=== PATIENT | male | born 1960 | race Two or more races ===

== ENCOUNTER 2020-10-10 19:04 | Inpatient (IN) | payer MEDICARE, OTHER ==
[~2020-10-10] VITALS: Ht 170.2 cm; Wt 83.9 kg
--- NOTE | 2020-10-10 19:31 | NUR ---
PT BIBRA 102 AND LORRAINE C/O CHEST PAIN X2 HR, UNABLE TO GIVE NITRO NOR ASPIRIN DUE TO PT "SPITTING IT OUT" UPON SPEAKING TO THE RA, STATED "HE HAS L SIDED CP" DUE TO PALPATION ON LEFT SIDE OF CHEST. LORRAINE STATED PT'S NOTED PT DID NOT SLEEP FOR THE PAST 3 DAYS, HAS BEEN AGGRESSIVE TOWARDS THE ACCUSING OF CHEATING. PT PLACED IN BED 10 ON CAR EXAMINER AND PULSE OX. LINE ESTABLISHED RH 20G, BLOOD COLLECTED, SENT TO LAB. PLACED ON HOLD FOR DANGER TO SELF AND OTHERS.
--- NOTE | 2020-10-10 19:54 | NUR ---
LINE ESTABLISHED LH 20G, BLOOD WORK SENT TO LAB.
[2020-10-10 20:04] LABS: BASOPHILS # (AUTO) 0.1 /CMM (0.0-0.2); BASOPHILS % (AUTO) 1.1 % (0.0-2.0); EOSINOPHILS % (AUTO) 0.1 % (0.0-6.0); HEMATOCRIT 34 % (39-51); HEMOGLOBIN 10.5 g/dL (13.5-17.5); LYMPHOCYTES % (AUTO) 13.7 % (20.0-44.0); MEAN CORPUSCULAR HGB CONC 31 g/dl (31.0-36.0); MEAN CORPUSCULAR VOLUME 69 fL (80-96); MONOCYTES # (AUTO) 0.6 /CMM (0.1-1.30); MONOCYTES % (AUTO) 8.4 % (2.0-12.0); NEUTROPHILS # (AUTO) 5.5 /CMM (1.8-8.9); NEUTROPHILS % (AUTO) 76.7 % (43.0-81.0); PLATELET COUNT (AUTO) 284 /CMM (150-450); RED BLOOD CELL COUNT(AUTO) 4.91 MIL/uL (4.5-6.0); WHITE BLOOD COUNT (AUTO) 7.2 K/uL (4.3-11.0)
[2020-10-10] MEDS ORDERED: HALOPERIDOL LACTATE INJ 5 MG/ML VIAL ONE (20:11)
[2020-10-10 20:21] LABS: ALANINE AMINOTRANSFERASE 8 U/L (12-78); ALCOHOL, BLOOD < 3 mg/dL (0-0); ALKALINE PHOSPHATASE 68 U/L (46-116); ASPARTATE AMINOTRANSFERASE 16 U/L (15-37); BILIRUBIN,DIRECT 0.2 mg/dL (0.0-0.2); BILIRUBIN,TOTAL 0.6 mg/dL (0.2-1.0); CALCIUM, SERUM 8.6 mg/dL (8.5-10.1); CARBON DIOXIDE 26 mmol/L (21-32); CHLORIDE 104 mmol/L (98-107); CREATININE 1.1 mg/dL (0.6-1.3); GLUCOSE 117 mg/dL (74-106); LIPASE 36 U/L (73-393); POTASSIUM 3.5 mmol/L (3.5-5.1); SODIUM SERUM 136 mmol/L (136-145); TOTAL PROTEIN, SERUM 7.5 g/dL (6.4-8.2); UREA NITROGEN, BLOOD 14 mg/dL (7-18)
[2020-10-10 20:28] LABS: ACETAMINOPHEN 0 ug/ml (10-30)
[2020-10-10] MEDS ORDERED: IV NS 0.9% 500 ML BAG IV ONE (20:30)
[2020-10-10] MEDS ORDERED: HALOPERIDOL LACTATE INJ 5 MG/ML VIAL IV ONE (20:30)
[2020-10-10] MEDS ORDERED: LIDOCAINE 2% JEL UROJET 10 ML MM ONE ×2 (20:57→21:30)
--- NOTE | 2020-10-10 21:11 | NUR ---
URINE COLLECTED, SENT TO LAB.
[2020-10-10 22:12] LABS: BILIRUBIN,URINE NEGATIVE (NEGATIVE); COLOR,URINE YELLOW (YELLOW); LEUKOCYTE ESTERASE ,URINE NEGATIVE (NEGATIVE); NITRITE, URINE NEGATIVE (NEGATIVE); PROTEIN,URINE 30 mg/dl (NEGATIVE); UGLUCOSE NEGATIVE (NEGATIVE); UROBILINOGEN,URINE 0.2 EU/dL (0.2)
[2020-10-10 22:33] LABS: RBC,URINE 0-2 /HPF (0-2)
[2020-10-10 22:34] LABS: BACTERIA,URINE None seen /HPF (None Seen); MUCUS,URINE Few /LPF (None Seen); SQUAMOUS EPITHELIAL CELL,UR Few /HPF (None Seen)
--- NOTE | 2020-10-11 01:58 | NUR ---
AZAM AIRCRAFT ENGINE MECHANIC SUPERVISOR PAGED FOR PSYCH EVAL.
--- NOTE | 2020-10-11 03:11 | NUR ---
AZAM BACKROOM ASSOCIATE PAGED FOR PSYCH EVAL.
--- NOTE | 2020-10-11 04:47 | NUR ---
PT REMAINS IN BED, RESTING COMFORTABLY. VSS.
--- NOTE | 2020-10-11 05:37 | NUR ---
AZAM FIELD REPRESENTATIVES DIRECTOR PAGED FOR PSYCH EVAL.
--- NOTE | 2020-10-11 05:48 | NUR ---
MUSEUM EDUCATOR ALEC NASCIMENTO ETA 1 HOUR FOR EVALUATION
--- NOTE | 2020-10-11 07:58 | NUR ---
Assumed care report given by Randy [id number] LORRAINE fraser @ bedside awaiting for re eval .
--- NOTE | 2020-10-11 11:50 | NUR ---
Patient calm @ this time remain 5150 no agitation @ this time check meds bottle 7 bottles of meds and returned and place in his belonging bag witness by Heather ADDISON .
--- NOTE | 2020-10-11 12:19 | NUR ---
pt assigned to [facility] Addendum: 10/11/20 at 1220 by RBATACLAN accepting is Dr. Eavns
--- NOTE | 2020-10-11 12:36 | NUR ---
Called report patient to [facility] akvya Coleman Rn .
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
[2020-10-11 13:15] VITALS: BP 162/94
[2020-10-11] MEDS ORDERED: TEMAZEPAM 7.5 MG CAPSULE PO PRN (14:00)
[2020-10-11] MEDS ORDERED: BLOOD SUGAR DIAGNOSTIC 1 EACH STRIP IN ONE (14:00)
[2020-10-11] MEDS ORDERED: MAGNESIUM HYDROXIDE 30 ML UDC PO PRN (14:00)
[2020-10-11] MEDS ORDERED: METO100T14 PO (14:39)
[2020-10-11] MEDS ORDERED: LORA-259 PO (14:39)
[2020-10-11] MEDS ORDERED: GABA600T12 PO (14:39)
[2020-10-11] MEDS ORDERED: CARB-94 PO (14:39)
[2020-10-11] MEDS ORDERED: LORA10TA7 PO (14:50)
[2020-10-11] MEDS ORDERED: QUET25TA PO (14:50)
[2020-10-11] MEDS ORDERED: ASPI-1169 PO ×2 (14:50)
[2020-10-11] MEDS ORDERED: MECL-159 PO (14:50)
[2020-10-11] MEDS ORDERED: ENTA200T PO (15:02)
[2020-10-11] MEDS: LORAZEPAM 0.5 MG TABLET PO PRN (15:44)
[2020-10-11] MEDS: ACETAMINOPHEN 325 MG TABLET PO PRN (15:44)
--- NOTE | 2020-10-11 15:46 | NUR ---
RN NOTE- PT W GENERALIZED DISCOMFORT AND ANXIETY. TYLENOL 650 MG AND ATIVAN 0.5 MG GIVEN
[2020-10-11] MEDS: ENTACAPONE 200 MG TABLET PO SCH ×2 (18:47→20:33)
[2020-10-11] MEDS: CARBIDOPA/LEVODOPA 25/250 MG 1 UDTAB PO SCH ×2 (18:54→20:33)
[2020-10-11 20:18] VITALS: BP 128/62
[2020-10-11] MEDS: METOPROLOL TARTRATE 50 MG TABLET PO SCH (20:35)
[2020-10-12] MEDS: ENTACAPONE 200 MG TABLET PO SCH ×5 (06:15→21:10)
[2020-10-12] MEDS: CARBIDOPA/LEVODOPA 25/250 MG 1 UDTAB PO SCH ×5 (06:15→21:11)
[2020-10-12] MEDS: GABAPENTIN 300 MG CAPSULE PO SCH ×3 (08:11→16:18)
[2020-10-12] MEDS: ASPIRIN 81 MG TAB.CHEW PO SCH (08:11)
[2020-10-12] MEDS: METOPROLOL TARTRATE 50 MG TABLET PO SCH ×2 (08:11→21:11)
[2020-10-12 08:12] VITALS: BP 156/87
[2020-10-12 08:13] LABS: ALBUMIN 3.4 g/dL (3.4-5.0); BILIRUBIN,TOTAL 0.6 mg/dL (0.2-1.0); CALCIUM, SERUM 8.8 mg/dL (8.5-10.1); CREATININE 0.8 mg/dL (0.6-1.3); POTASSIUM 3.6 mmol/L (3.5-5.1)
[2020-10-12 08:14] LABS: IRON, SERUM 39 ug/dl (50-175); TOTAL IRON BINDING CAPACITY 335 ug/dl (250-450)
[2020-10-12 08:24] LABS: THYROID STIMULATING HORMONE 0.634 uIU/mL (0.358-3.74)
--- NOTE | 2020-10-12 09:00 | NUR ---
PT IS ALERT ORIENTED TO PERSON PLACE , CONFUSION PRESENT SLURRED SPEECH AT TIMES PO INTAKE GOOD MED COMPLIANT NEEDS ATTENDED UP TO BR W FWW, UNSTEADY. DENIES SI HI VH
[2020-10-12] MEDS: MAG HYDROX/AL HYDROX/SIMETH 30 ML UDC PO PRN (09:56)
--- NOTE | 2020-10-12 09:58 | NUR ---
RN NOTE- C/O DYSPEPSIA. MAALOX 30ML GIVEN
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
--- NOTE | 2020-10-12 12:06 | NUR ---
Initial Family Contact: SW called and spoke with the pt.s , Katlin Ramirez [phone] who stated she is the pt.s responsible democrat. Per Katlin, she is the pt.s caregiver and pt. is under the care or [facility] Neurologist, Otis Tavera [phone]; [phone] [email or web address]. Per Katlin, the pt.s neurologist is open to be contacted for continuity of care. This SW or other SW will be available to support the pt. and their family as needed.
--- NOTE | 2020-10-12 13:21 | NUR ---
RN-CO: PER DR SPENCE, TRANSFER CARE TO DR SPENCE.
[2020-10-12] MEDS: ESCITALOPRAM OXALATE (10 MG) 10 MG TABLET PO SCH (14:48)
[2020-10-12 15:15] VITALS: BP 150/90
[2020-10-12 20:11] VITALS: BP 128/81
[2020-10-12] MEDS ORDERED: QUETIAPINE FUMARATE 25 MG TABLET PO SCH (22:00)
[2020-10-13] MEDS: CARBIDOPA/LEVODOPA 25/250 MG 1 UDTAB PO SCH ×5 (06:08→20:46)
[2020-10-13] MEDS: ENTACAPONE 200 MG TABLET PO SCH ×5 (06:08→20:45)
[2020-10-13] MEDS: ASPIRIN 81 MG TAB.CHEW PO SCH (08:00)
[2020-10-13] MEDS: ESCITALOPRAM OXALATE (10 MG) 10 MG TABLET PO SCH (08:00)
[2020-10-13] MEDS: GABAPENTIN 300 MG CAPSULE PO SCH ×3 (08:00→16:45)
[2020-10-13] MEDS: METOPROLOL TARTRATE 50 MG TABLET PO SCH ×2 (08:00→20:46)
--- NOTE | 2020-10-13 09:00 | NUR ---
RN NOTE- PT CONTINUES TO BE NEEDY WITH SOME CONFUSION PRESENT SLURRED SPEECH AT TIMES PO INTAKE GOOD MED COMPLIANT NEEDS ATTENDED UP TO BR W FWW, UNSTEADY. DENIES SI [facility] VH
--- NOTE | 2020-10-13 09:32 | NUR ---
[facility] Referral: SEW faxed patient's referral packet for review and possible placement to: [facility] attention to Princess ( ) [facility] attention to Adolph ( ) [facility] attention to Ajay ( ) Addendum: 10/13/20 at 1252 by JOSIANE RETANA [facility] denied the patient. [facility] unable to accept patients currently due to lockdown. Addendum: 10/14/20 at 0827 by JOSIANE RETANA Patient is accepted at [facility].
--- NOTE | 2020-10-13 13:40 | NUR ---
Per SARAH Allen's request, SARAH made 3 separate calls to the pt.s , Katlin Ramirez [phone]. However, calls went to voicemail and inbox was full. This SW provided Katlin with this SW number in the past. SW will be available as needed.
[2020-10-13 16:00] VITALS: BP 153/85
[2020-10-13 21:09] VITALS: BP 150/79
[2020-10-13] MEDS ORDERED: QUETIAPINE FUMARATE 25 MG TABLET PO SCH (22:00)
[2020-10-14] MEDS: CARBIDOPA/LEVODOPA 25/250 MG 1 UDTAB PO SCH ×6 (00:57→21:15)
[2020-10-14] MEDS: ENTACAPONE 200 MG TABLET PO SCH ×5 (06:35→21:15)
[2020-10-14 07:41] VITALS: BP 157/90
[2020-10-14] MEDS: ASPIRIN 81 MG TAB.CHEW PO SCH (08:22)
[2020-10-14] MEDS: METOPROLOL TARTRATE 50 MG TABLET PO SCH ×2 (08:23→21:15)
[2020-10-14] MEDS: ESCITALOPRAM OXALATE (10 MG) 10 MG TABLET PO SCH (08:23)
[2020-10-14] MEDS: GABAPENTIN 300 MG CAPSULE PO SCH ×3 (08:23→16:00)
--- NOTE | 2020-10-14 11:45 | NUR ---
RN-CO: PATIENT STATED THAT HE NEEDS FLOMAX AT BEDTIME. ( W/ [employer] BOAT PULLER) DR TEMO Walker MADE AWARE AND ORDERED FLOMAX 0.4 MG AT HS NOTED AND CARRIED OUT.
[2020-10-14] MEDS: LORAZEPAM 0.5 MG TABLET PO PRN (15:30)
[2020-10-14 18:02] VITALS: BP 159/90
[2020-10-14 19:41] VITALS: BP 159/83
[2020-10-14] MEDS: ACETAMINOPHEN 325 MG TABLET PO PRN (20:13)
[2020-10-14] MEDS: TAMSULOSIN 0.4 MG CAP.SR.24H PO SCH (21:15)
[2020-10-14] MEDS ORDERED: QUETIAPINE FUMARATE 25 MG TABLET PO SCH (22:00)
[2020-10-15] MEDS: CARBIDOPA/LEVODOPA 25/250 MG 1 UDTAB PO SCH ×6 (00:05→20:38)
[2020-10-15] MEDS: ENTACAPONE 200 MG TABLET PO SCH ×5 (05:59→20:38)
[2020-10-15 08:00] VITALS: BP 149/81
[2020-10-15] MEDS: ASPIRIN 81 MG TAB.CHEW PO SCH (08:08)
[2020-10-15] MEDS: GABAPENTIN 300 MG CAPSULE PO SCH ×3 (08:08→16:56)
[2020-10-15] MEDS: LORAZEPAM 0.5 MG TABLET PO PRN ×2 (08:09→15:42)
[2020-10-15] MEDS: ESCITALOPRAM OXALATE (10 MG) 10 MG TABLET PO SCH (08:09)
[2020-10-15] MEDS: METOPROLOL TARTRATE 50 MG TABLET PO SCH ×2 (08:09→20:38)
--- NOTE | 2020-10-15 08:11 | NUR ---
RN-CO: ATIVAN GIVEN FOR ANXIETY.
[2020-10-15] MEDS: ACETAMINOPHEN 325 MG TABLET PO PRN (12:21)
[2020-10-15 16:00] VITALS: BP 188/98
--- NOTE | 2020-10-15 16:31 | NUR ---
RN-CO: PAGED DR TEMO Walker FOR BP 188/98. AWAITING TO CALL BACK.
--- NOTE | 2020-10-15 16:58 | NUR ---
RN-CO: ORDERED METOPROLOL 100 MG PO X ONE, NOTED AND CARRIED OUT.
[2020-10-15] MEDS ORDERED: METOPROLOL TARTRATE 50 MG TABLET PO ONE (17:00)
[2020-10-15 18:37] VITALS: BP 146/77
--- NOTE | 2020-10-15 19:30 | NUR ---
GPS RN NOTE, RECEIVED PATIENT AWAKE AND IN BED, NO S/S OR COMPLAINTS OF PAIN AT THIS TIME. PATIENT IS DISPLAYING NO S/S OF APPARENT DISTRESS AT THIS TIME. PATIENT BREATHING IS UNLABORED WITH EQUAL RISE AND FALL OF THE CHEST. PATIENT IS ALERT AND ORIENTED X 3 ON ROOM AIR WITH A SPO2 97%. PATIENT IS COMPLIANT WITH MEDICATIONS, ANXIOUS AT TIMES, NEEDY, HYPERVERBAL, AND COOPERATIVE. PATIENT DENIES SUICIDAL AND HOMICIDAL IDEATIONS AT THIS TIME. PATIENT ASSISTED WITH TURNING AND REPOSITIONING Q2HR AND PRN FOR COMFORT AND CIRCULATION. PATIENT HAS NO NEEDS AT THIS TIME. PATIENT EDUCATED ON THE USE OF THE CALL MORRISSEY. PATIENT BED SIDE RAILS UP X 2 FOR SAFETY. PATIENT BED IS LOCKED, LOW, WITH BED ALARM ON. WILL CONTINUE TO MONITOR THIS PATIENT Q15 MINUTES WITH THE HELP OF STAFF TO MAINTAIN SAFETY.
[2020-10-15 20:06] VITALS: BP 163/87
[2020-10-15] MEDS: QUETIAPINE FUMARATE 100 MG TABLET PO SCH (21:08)
[2020-10-15] MEDS: TAMSULOSIN 0.4 MG CAP.SR.24H PO SCH (21:08)
[2020-10-15] MEDS ORDERED: QUETIAPINE FUMARATE 25 MG TABLET PO SCH (22:00)
[2020-10-16] MEDS: CARBIDOPA/LEVODOPA 25/250 MG 1 UDTAB PO SCH ×6 (00:08→21:21)
[2020-10-16] MEDS: ENTACAPONE 200 MG TABLET PO SCH ×5 (07:18→21:21)
[2020-10-16] MEDS: GABAPENTIN 300 MG CAPSULE PO SCH ×3 (08:09→16:05)
[2020-10-16] MEDS: ESCITALOPRAM OXALATE (10 MG) 10 MG TABLET PO SCH (08:09)
[2020-10-16] MEDS: ASPIRIN 81 MG TAB.CHEW PO SCH (08:09)
[2020-10-16] MEDS: METOPROLOL TARTRATE 50 MG TABLET PO SCH ×2 (08:11→21:22)
[2020-10-16] MEDS: ACETAMINOPHEN 325 MG TABLET PO PRN ×2 (08:33→16:31)
--- NOTE | 2020-10-16 08:35 | NUR ---
GPS RN NOTES PATIENT CAME TO NURSING STATION AMBULATORY WITH FWW AND C/O MILD HEADACHE, PRN TYLENOL 650MG GIVEN AT 0833. WILL CONTINUE TO MONITOR PT.
[2020-10-16 09:58] VITALS: BP 150/83
--- NOTE | 2020-10-16 11:33 | NUR ---
SW Family Contact: This SW spoke with patient's Katlin Ramirez ([phone]) who is aware of patient's treatment and discharge plan. This SW mentioned patient is accepted at a nursing facility called [facility] and was agreeable with this.
--- NOTE | 2020-10-16 11:34 | NUR ---
SARAH Note: SW spoke with patient and stated he is accepted at [facility] and he was agreeable.
[2020-10-16] MEDS: LORAZEPAM 0.5 MG TABLET PO PRN ×2 (11:39→19:43)
--- NOTE | 2020-10-16 11:41 | NUR ---
RN NOTES PT NOTED RESTLESS, ANXIOUS AND KEEPS KNOCKING ON SW'S DOOR ASKING SEVERAL TIMES WHEN WILL HE BE DISCHARGED. PRN LORAZEPAM 0.5MG P.O. GIVEN AT 1139. WILL CONTINUE TO MONITOR PT.
--- NOTE | 2020-10-16 12:31 | NUR ---
PC Hearing: Patient's court hearing was held today and it was upheld for gravely disabled.
[2020-10-16 16:36] VITALS: BP 160/94
--- NOTE | 2020-10-16 19:45 | NUR ---
RN NOTES: ANXIETY PT. C/O FEELING ANXIOUS ATIVAN 0.5 MG PO PRN , GIVEN PER PT. REQUEST , WILL CONTINUE TO MONITOR.
[2020-10-16 19:54] VITALS: BP 148/80
[2020-10-16 20:12] VITALS: BP 149/82
[2020-10-16] MEDS: TAMSULOSIN 0.4 MG CAP.SR.24H PO SCH (22:05)
[2020-10-16] MEDS: QUETIAPINE FUMARATE 100 MG TABLET PO SCH (22:05)
[2020-10-17] MEDS: CARBIDOPA/LEVODOPA 25/250 MG 1 UDTAB PO SCH ×6 (01:22→20:17)
--- NOTE | 2020-10-17 06:43 | NUR ---
GPS RN NOTES: PT. RESTING IN HIS ROOM, CALM NOTED AT THIS TIME . NO S/S OF DISTRESS NOTED . PT. CALM COOPERTIVE,NO CHANGE OF CONDITION NOTED ,AND NO BEHAVIOR PROBLEMS NOTED, ALL CARE NEEDS MET ANTICIPATED. WILL CONTINUE TO MONITOR FOR SAFETY BEHAVIOR, AND ENDORSE TO AM SHIFT FOR CONTINUITY OF CARE.
[2020-10-17] MEDS: ENTACAPONE 200 MG TABLET PO SCH ×5 (07:19→21:16)
[2020-10-17 08:00] VITALS: BP 161/87
[2020-10-17] MEDS: ASPIRIN 81 MG TAB.CHEW PO SCH (08:03)
[2020-10-17] MEDS: GABAPENTIN 300 MG CAPSULE PO SCH ×3 (08:04→16:05)
[2020-10-17] MEDS: ESCITALOPRAM OXALATE (10 MG) 10 MG TABLET PO SCH (08:04)
[2020-10-17] MEDS: METOPROLOL TARTRATE 50 MG TABLET PO SCH ×2 (08:04→20:14)
[2020-10-17] MEDS: ACETAMINOPHEN 325 MG TABLET PO PRN ×2 (08:08→18:49)
[2020-10-17] MEDS: MAG HYDROX/AL HYDROX/SIMETH 30 ML UDC PO PRN (08:26)
[2020-10-17 09:45] VITALS: BP 148/86
[2020-10-17] MEDS: LORAZEPAM 0.5 MG TABLET PO PRN (11:47)
[2020-10-17 12:00] VITALS: BP 191/89
[2020-10-17] MEDS: LOSARTAN POTASSIUM 50 MG TABLET PO SCH (14:01)
[2020-10-17] MEDS: VERAPAMIL HCL 80 MG TABLET PO SCH ×2 (15:54→21:00)
[2020-10-17 19:50] VITALS: BP 193/96
[2020-10-17 20:15] VITALS: BP 177/105
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
--- NOTE | 2020-10-17 20:42 | NUR ---
GPS RN NOTE PATIENT'S BP IS 177/105, 84, METOPROLOL 100 MG GIVEN, WILL CONTINUE TO ASSESS THE PATIENT FOR ANY CHANGE OF CONDITION.
--- NOTE | 2020-10-17 22:30 | NUR ---
GPS RN NOTE PATIENT'S BP IS 148/68, 59, 18, 97.8, 96% AT RA. WILL CONTINUE TO MONITOR FOR ANY CHANGES.
[2020-10-17] MEDS: QUETIAPINE FUMARATE 100 MG TABLET PO SCH (22:39)
[2020-10-17] MEDS: TAMSULOSIN 0.4 MG CAP.SR.24H PO SCH (22:39)
--- NOTE | 2020-10-17 22:44 | NUR ---
GPS RN NOTE PATIENT REFUSED TO TAKE VERAPAMIL 80 MG AT THIS TIME. BP IS 148/68, 59. PATIENT TOOK ALL OTHER SCHEDULED MEDICATIONS. KEEPS ON INSISTING TO GET SHILPA MAN WAS MADE AWARE, PER SHILPA NO NEW ORDER, CONTINUE TO MONITOR, TYLENOL WAS GIVEN TO THE PATIENT ABOUT 3 HOURS AGO. PATIENT AGREED TO TAKE TYLENOL AGAIN AFTER 6 HOURS AFTER EXPLANATIONS WERE GIVEN TO THE PATIENT. CONTINUING TO MONITOR.
[2020-10-18] MEDS: CARBIDOPA/LEVODOPA 25/250 MG 1 UDTAB PO SCH ×6 (01:12→21:00)
[2020-10-18] MEDS: ACETAMINOPHEN 325 MG TABLET PO PRN ×2 (01:14→08:47)
--- NOTE | 2020-10-18 01:15 | NUR ---
GPS RN NOTE: PAIN PATIENT C/O BOTH LEG PAIN & REQUESTED TO TAKE TYLENOL. PRN TYLENOL 650 MG PO GIVEN. WILL CONTINUE TO MONITOR.
[2020-10-18 05:15] VITALS: BP 168/100
[2020-10-18] MEDS: VERAPAMIL HCL 80 MG TABLET PO SCH ×3 (05:23→22:07)
--- NOTE | 2020-10-18 05:25 | NUR ---
GPS RN NOTE PATIENT'S VITALS ARE 168/100, 69, 18, 97.6, 96% ON RA. SCHEDULED VERAPAMIL 80 MG PO ADMINISTERED. NO C/O HEADACHE, DIZZINESS VERBALIZED BY THE PATIENT. WILL CONTINUE TO MONITOR.
--- NOTE | 2020-10-18 06:30 | NUR ---
GPS RN NOTE PATIENT'S VITALS ARE 149/84, 64, 18, 97.8, 97% @ RA. PATIENT IS RESTING IN BED. NO ACUTE CHANGES NOTED. WILL ENDORSE TO AM RN.
[2020-10-18 06:32] VITALS: BP 149/84
[2020-10-18 08:00] VITALS: BP 153/97
[2020-10-18] MEDS: ASPIRIN 81 MG TAB.CHEW PO SCH (08:45)
[2020-10-18] MEDS: LOSARTAN POTASSIUM 50 MG TABLET PO SCH (08:45)
[2020-10-18] MEDS: ESCITALOPRAM OXALATE (10 MG) 10 MG TABLET PO SCH (08:45)
[2020-10-18] MEDS: GABAPENTIN 300 MG CAPSULE PO SCH ×3 (08:47→17:35)
[2020-10-18] MEDS: METOPROLOL TARTRATE 50 MG TABLET PO SCH ×2 (08:47→21:00)
[2020-10-18] MEDS: ENTACAPONE 200 MG TABLET PO SCH ×5 (08:58→21:00)
[2020-10-18 16:00] VITALS: BP 162/76
[2020-10-18 20:19] VITALS: BP 138/73
[2020-10-18 22:05] VITALS: BP 140/78
[2020-10-18] MEDS: TAMSULOSIN 0.4 MG CAP.SR.24H PO SCH (22:06)
[2020-10-18] MEDS: QUETIAPINE FUMARATE 100 MG TABLET PO SCH (22:06)
[2020-10-19] MEDS: CARBIDOPA/LEVODOPA 25/250 MG 1 UDTAB PO SCH ×6 (01:00→20:35)
[2020-10-19] MEDS: VERAPAMIL HCL 80 MG TABLET PO SCH ×3 (05:00→20:38)
[2020-10-19] MEDS: ENTACAPONE 200 MG TABLET PO SCH ×5 (06:27→20:36)
[2020-10-19 08:00] VITALS: BP 125/73
[2020-10-19] MEDS: ASPIRIN 81 MG TAB.CHEW PO SCH (08:45)
[2020-10-19] MEDS: GABAPENTIN 300 MG CAPSULE PO SCH ×3 (08:46→16:25)
[2020-10-19] MEDS: LOSARTAN POTASSIUM 50 MG TABLET PO SCH (08:46)
[2020-10-19] MEDS: ESCITALOPRAM OXALATE (10 MG) 10 MG TABLET PO SCH (08:47)
[2020-10-19] MEDS: METOPROLOL TARTRATE 50 MG TABLET PO SCH ×2 (09:01→20:36)
[2020-10-19] MEDS: ACETAMINOPHEN 325 MG TABLET PO PRN (09:31)
--- NOTE | 2020-10-19 09:37 | NUR ---
Patient c/o headache medicated with Tylenol 650mg x1 will continue to monitor .
[2020-10-19 16:05] VITALS: BP 149/88
[2020-10-19 20:23] VITALS: BP 164/89
[2020-10-19] MEDS: QUETIAPINE FUMARATE 100 MG TABLET PO SCH (21:10)
[2020-10-19] MEDS: TAMSULOSIN 0.4 MG CAP.SR.24H PO SCH (21:10)
[2020-10-20] MEDS: CARBIDOPA/LEVODOPA 25/250 MG 1 UDTAB PO SCH ×6 (00:45→20:21)
[2020-10-20] MEDS: VERAPAMIL HCL 80 MG TABLET PO SCH ×3 (04:53→20:21)
[2020-10-20] MEDS: ENTACAPONE 200 MG TABLET PO SCH ×5 (06:28→20:21)
[2020-10-20 08:00] VITALS: BP 143/70
[2020-10-20] MEDS: ASPIRIN 81 MG TAB.CHEW PO SCH (08:16)
[2020-10-20] MEDS: ESCITALOPRAM OXALATE (10 MG) 10 MG TABLET PO SCH (08:17)
[2020-10-20] MEDS: METOPROLOL TARTRATE 50 MG TABLET PO SCH ×2 (08:17→20:21)
[2020-10-20] MEDS: LOSARTAN POTASSIUM 50 MG TABLET PO SCH (08:18)
[2020-10-20] MEDS: GABAPENTIN 300 MG CAPSULE PO SCH ×3 (08:20→17:22)
[2020-10-20] MEDS: ACETAMINOPHEN 325 MG TABLET PO PRN ×2 (08:22→21:08)
--- NOTE | 2020-10-20 09:33 | NUR ---
Individual Intervention: SW met with the pt in the Activities Room and discussed pts discharge. Pt stated that he wanted to know when he was going home and SW informed him that he had agreed to SNF placement due to his 's concerns with having him at home. Pt nodded his head slowly as he remembered and inquired when he would be discharged to the SNF. SW informed him that his MD has not provided a discharge date at this time but once he does she will inform him.
[2020-10-20] MEDS ORDERED: IBUPROFEN 600 MG TABLET PO PRN (12:30)
[2020-10-20] MEDS: LORAZEPAM 0.5 MG TABLET PO PRN (13:32)
--- NOTE | 2020-10-20 13:32 | NUR ---
RN NOTE- PT W C/O ANXIETY AND RESTLESSNESS. ATIVAN 0.5 MG GIVEN AT THIS TIME
[2020-10-20 16:00] VITALS: BP 144/76
[2020-10-20 20:42] VITALS: BP 153/88
[2020-10-20] MEDS: QUETIAPINE FUMARATE 100 MG TABLET PO SCH (21:07)
[2020-10-20] MEDS: TAMSULOSIN 0.4 MG CAP.SR.24H PO SCH (21:07)
[2020-10-21] MEDS: CARBIDOPA/LEVODOPA 25/250 MG 1 UDTAB PO SCH ×6 (00:55→20:20)
[2020-10-21] MEDS: VERAPAMIL HCL 80 MG TABLET PO SCH ×3 (05:01→20:19)
[2020-10-21] MEDS: ENTACAPONE 200 MG TABLET PO SCH ×5 (06:35→20:20)
[2020-10-21 08:00] VITALS: BP 125/66
[2020-10-21] MEDS: ASPIRIN 81 MG TAB.CHEW PO SCH (08:22)
[2020-10-21] MEDS: GABAPENTIN 300 MG CAPSULE PO SCH ×3 (08:22→16:08)
[2020-10-21] MEDS: LOSARTAN POTASSIUM 50 MG TABLET PO SCH (08:22)
[2020-10-21] MEDS: ESCITALOPRAM OXALATE (10 MG) 10 MG TABLET PO SCH (08:23)
[2020-10-21] MEDS: METOPROLOL TARTRATE 50 MG TABLET PO SCH ×2 (08:23→20:20)
[2020-10-21] MEDS: ACETAMINOPHEN 325 MG TABLET PO PRN (09:08)
[2020-10-21] MEDS: LORAZEPAM 0.5 MG TABLET PO PRN (12:40)
--- NOTE | 2020-10-21 12:42 | NUR ---
SNI MS: ATIVAN 0.5 MG GIVEN DUE TO ANXIETY
[2020-10-21 16:00] VITALS: BP 129/64
[2020-10-21 20:23] VITALS: BP 148/73
[2020-10-21] MEDS: TAMSULOSIN 0.4 MG CAP.SR.24H PO SCH (21:09)
[2020-10-21] MEDS: QUETIAPINE FUMARATE 100 MG TABLET PO SCH (21:09)
[2020-10-22] MEDS: CARBIDOPA/LEVODOPA 25/250 MG 1 UDTAB PO SCH ×6 (00:15→21:13)
[2020-10-22] MEDS: VERAPAMIL HCL 80 MG TABLET PO SCH ×3 (05:19→21:14)
[2020-10-22] MEDS: ENTACAPONE 200 MG TABLET PO SCH ×5 (06:25→21:13)
[2020-10-22 08:00] VITALS: BP 107/64
[2020-10-22] MEDS: GABAPENTIN 300 MG CAPSULE PO SCH ×3 (08:45→16:10)
[2020-10-22] MEDS: ASPIRIN 81 MG TAB.CHEW PO SCH (08:45)
[2020-10-22] MEDS: LORAZEPAM 0.5 MG TABLET PO PRN ×2 (08:45→16:10)
[2020-10-22] MEDS: ESCITALOPRAM OXALATE (10 MG) 10 MG TABLET PO SCH (08:46)
[2020-10-22] MEDS: ACETAMINOPHEN 325 MG TABLET PO PRN ×2 (09:06→19:23)
--- NOTE | 2020-10-22 09:07 | NUR ---
STUDENT CLOTH SHADER MS: TYLENOL 650MG GIVEN FOR PAIN 12/16
--- NOTE | 2020-10-22 09:27 | NUR ---
RN-CO: ATIVAN GIVEN FOR RESTLESSNESS.
[2020-10-22] MEDS: METOPROLOL TARTRATE 50 MG TABLET PO SCH ×2 (10:03→21:14)
[2020-10-22] MEDS: LOSARTAN POTASSIUM 50 MG TABLET PO SCH (10:04)
--- NOTE | 2020-10-22 10:15 | NUR ---
Updated Family: SARAH called the pt.'s Katlin [phone] and notified her that the the pt. will be discharged on 10/23/2020 to [facility] [[address] [place] [address]; [phone]]. Katlin expressed understanding and was agreeable to discharge plan. SARAH educated Katlin about Conservatorship & Advanced Healthcare Directives. Per Katlin's request SARAH mailed Conservatorship & Advanced Healthcare Directive informational packets (in Mohawk) to Katlin at [[id number] [facility]. [facility] [facility] [address]]. SARAH addressed Katlin's questions. SARAH will be available as needed. Addendum: 10/23/20 at 1040 by MOLLY SMITH SARAH also mailed Brittany Klein [phone] brochure; Jhon [phone];Toll-Free Number: [phone] ([phone]) [facility]; and provided Mobile Public Notary : Nelida Xavier [phone].
[2020-10-22 16:00] VITALS: BP 123/52
--- NOTE | 2020-10-22 16:32 | NUR ---
RN-CO: COVID TEST WAS TAKEN TO LAB.
--- NOTE | 2020-10-22 19:23 | NUR ---
GPS RN NOTE, PATIENT HAS A COMPLAINT OF LOWER BACK PAIN AT 2 OUT OF 10 ON THE PAIN SCALE AND IS REQUESTING TYLENOL AT THIS TIME. PATIENT VITAL SIGNS ARE STABLE. GAVE TYLENOL 650MG PO Q6HR PRN ORDERED. WILL REASSESS PAIN AND I WILL CONTINUE TO MONITOR THIS PATIENT.
--- NOTE | 2020-10-22 19:30 | NUR ---
GPS RN NOTE, RECEIVED PATIENT AWAKE AND IN BED, PATIENT HAS A COMPLAINT OF LOWER BACK AT 2 OUT 10 ON THE PAIN SCALE. PATIENT IS TAKING ORAL PAIN MEDICATION FOR THIS PAIN. PATIENT IS DISPLAYING NO S/S OF APPARENT DISTRESS AT THIS TIME. PATIENT BREATHING IS UNLABORED WITH EQUAL RISE AND FALL OF THE CHEST. PATIENT IS ALERT AND ORIENTED X 3 ON ROOM AIR WITH A SPO2 97%. PATIENT IS COMPLIANT WITH MEDICATIONS, ANXIOUS AT TIMES, DEMANDING, HYPERVERBAL, AND COOPERATIVE. PATIENT DENIES SUICIDAL AND HOMICIDAL IDEATIONS AT THIS TIME. PATIENT ASSISTED WITH TURNING AND REPOSITIONING Q2HR AND PRN FOR COMFORT AND CIRCULATION. PATIENT HAS NO NEEDS AT THIS TIME. PATIENT EDUCATED ON THE USE OF THE CALL MORRISSEY. PATIENT BED SIDE RAILS UP X 2 FOR SAFETY. PATIENT BED IS LOCKED, LOW, WITH BED ALARM ON. WILL CONTINUE TO MONITOR THIS PATIENT Q15 MINUTES WITH THE HELP OF STAFF TO MAINTAIN SAFETY.
[2020-10-22 19:42] VITALS: BP 137/87
[2020-10-22] MEDS: TAMSULOSIN 0.4 MG CAP.SR.24H PO SCH (21:13)
[2020-10-22] MEDS: QUETIAPINE FUMARATE 100 MG TABLET PO SCH (21:13)
[2020-10-23] MEDS: CARBIDOPA/LEVODOPA 25/250 MG 1 UDTAB PO SCH ×4 (00:08→12:06)
[2020-10-23] MEDS: VERAPAMIL HCL 80 MG TABLET PO SCH ×2 (05:09→12:12)
[2020-10-23] MEDS: ENTACAPONE 200 MG TABLET PO SCH ×2 (06:35→11:09)
[2020-10-23 08:00] VITALS: BP 148/83
[2020-10-23] MEDS: ASPIRIN 81 MG TAB.CHEW PO SCH (08:09)
[2020-10-23] MEDS: METOPROLOL TARTRATE 50 MG TABLET PO SCH (08:10)
[2020-10-23] MEDS: LOSARTAN POTASSIUM 50 MG TABLET PO SCH (08:10)
[2020-10-23] MEDS: ESCITALOPRAM OXALATE (10 MG) 10 MG TABLET PO SCH (08:10)
[2020-10-23] MEDS: GABAPENTIN 300 MG CAPSULE PO SCH ×2 (08:10→12:06)
[2020-10-23] MEDS: ACETAMINOPHEN 325 MG TABLET PO PRN (08:58)
--- NOTE | 2020-10-23 09:00 | NUR ---
RN NOTE- PT IS ALERT NEEDY FOCUS ON DC, MED COMPLIANT FLAT AFFECT DENIES ALL FOR DC AT 1300
--- NOTE | 2020-10-23 09:02 | NUR ---
RN NOTE- PT C./O HEADACHE TYLENOL 650 MG GIVEN
--- NOTE | 2020-10-23 09:14 | NUR ---
Discharge Note: Pt will be discharged to [facility] ([facility]) located at [address] [place] [address]; ([phone]). Pt will be transported via [facility] (Trip #[id number]) at 1PM. Pts , Katlin Ramirez ([phone]), was informed of the discharge. Upon discharge, the pt appears to be in a depressed mood and presented with a distressed affect. Pt appears to be alert and oriented x4 (time, place, self and situation). Pt denies both suicidal and homicidal ideation as well as auditory and visual hallucinations. Pt appears to be ambulatory with the assistance of a walker. Pt will be under the care of his psychiatrist, Dr. Mayes, [place] at [address] [place] [address]; and his blending coordinator, Dr. Santiago, located at [address] [place] [address]; . Choice of vendor and the multidisciplinary exit care form was done, printed, signed, and given to the patient.
[2020-10-23 12:12] VITALS: BP 154/83
--- NOTE | 2020-10-23 13:10 | NUR ---
RN DC NOTE- PT DC AT THIS TIME [facility] TO [facility]. PT ALERT ORIENTED TO PERSON PLACE TIME AND PURPOSE. PT DENIES SI HI AH VH. PT CALM COOPERATIVE AND INTERACTIVE. PT IS AMBULATORY W FWW. STEADY GAIT. SKIN INTACT. PT HAD INFLUENZA VACCINE THIS SEASON IN "JULY I THINK " AND REFUSES PNA VACCINE. PT VS ARE STABLE. VALUABLES RETURNED TO PT. MEDS RETURNED TO PT AND GIVEN OVER TO CARE OF AMBULANCE STAFF. ID WRISTBAND REMOVED. REPORT CALLED TO HIMANSHU AT FACILITY. ESCORTED OFF UNIT BY STAFF
== END 2020-10-23 13:15 | DRG 885 ==
LOC: ER 19:09 → EDBD 19:09 → GPS 10-11 12:42
PROVIDERS: ADMIT Psychiatry & Neurology Psychiatry; ATTEND Registered Nurse
DX: F25.9 Schizoaffective disorder, unspecified (principal); D50.9 Iron deficiency anemia, unspecified; G30.9 Alzheimer's disease, unspecified; F02.80 Dementia in other diseases classified elsewhere, unspecified severity, without behavioral disturbance, psychotic disturbance, mood disturbance, and anxiety; I10 Essential (primary) hypertension; Z95.0 Presence of cardiac pacemaker; G20 Parkinson's disease; J45.909 Unspecified asthma, uncomplicated; Z91.14 Patient's other noncompliance with medication regimen
CPT/HCPCS: 36415; 71045-TC; 80048-TC; 80053-TC; 80061-TC; 80076-TC; 81001; 82962-TC; 83540-TC; 83690-TC; 83880; 84443-TC; 84484-TC; 85025-TC; 87081-TC; C9803; G0480; J1630; J3490; J7040

== ENCOUNTER 2021-01-14 11:59 | Emergency (ER) | payer MEDICARE, OTHER ==
[~2021-01-14] VITALS: Ht 170.2 cm; Wt 81.6 kg
[~2021-01-14 11:59] MED LIST: ASPI-1169 PO; CARB-94 PO; ENTA200T PO; GABA600T12 PO; LORA-259 PO; LORA10TA7 PO; MECL-159 PO; METO100T14 PO; QUET25TA PO
[2021-01-14 12:06] VITALS: BP 152/84
[2021-01-14] MEDS ORDERED: LORAZEPAM 1 MG TABLET ONE (12:58)
[2021-01-14] MEDS: LORAZEPAM 1 MG TABLET PO ONE (12:59)
[2021-01-14] MEDS ORDERED: LORA-259 PO (13:27)
[2021-01-14] MEDS ORDERED: CITA10TA9 PO (13:27)
--- NOTE | 2021-01-14 14:12 | NUR ---
Patient discharged to home in stable condition. Written and verbal after care instructions given. Patient verbalizes understanding of instruction.
== END 2021-01-14 14:12 | disposition home or self-care (01) ==
LOC: ER 12:09
DX: F41.9 Anxiety disorder, unspecified (principal); F32.9 Major depressive disorder, single episode, unspecified; G20 Parkinson's disease; G30.9 Alzheimer's disease, unspecified; F02.80 Dementia in other diseases classified elsewhere, unspecified severity, without behavioral disturbance, psychotic disturbance, mood disturbance, and anxiety; I10 Essential (primary) hypertension; Z76.0 Encounter for issue of repeat prescription; Z79.82 Long term (current) use of aspirin; Z79.899 Other long term (current) drug therapy

== ENCOUNTER 2021-03-01 13:47 | Emergency (ER) | payer MEDICARE, OTHER ==
[~2021-03-01] VITALS: Ht 170.2 cm; Wt 88.5 kg
[~2021-03-01 13:47] MED LIST changes: +CITA10TA9 PO
--- NOTE | 2021-03-01 14:07 | NUR ---
BIBS WITH FAMILY TO ER BED 6. AAOX4. NOT IN RESP DISTRESS. AMBULATORY W. A FWW. CAME IN FOR DIZZYNESS, HEADACHE, SOB, MIDL-LEFT CHEST PAIN X 1 WEEK. PAIN IS NON RADIATING. WAST AT THE BEDSIDE FOR EVAL. ORDERS RECEIVED, NOTED AND CARRIED OUT.
[2021-03-01] MEDS ORDERED: ONDANSETRON HCL/PF 4 MG/2 ML VIAL ONE (14:20)
[2021-03-01] MEDS ORDERED: MECLIZINE HCL 25 MG TABLET ONE (14:21)
[2021-03-01] MEDS ORDERED: MECLIZINE HCL 12.5 MG TABLET PO ONE (14:30)
[2021-03-01] MEDS ORDERED: ONDANSETRON HCL/PF 4 MG/2 ML VIAL IVP ONE (14:30)
[2021-03-01 14:31] LABS: BASOPHILS # (AUTO) 0.1 /CMM (0.0-0.2); HEMATOCRIT 35 % (39-51); LYMPHOCYTES % (AUTO) 19.7 % (20.0-44.0); MEAN CORPUSCULAR HGB CONC 34 g/dl (31.0-36.0); MEAN CORPUSCULAR VOLUME 76 fL (80-96); MONOCYTES # (AUTO) 0.5 /CMM (0.1-1.30); MONOCYTES % (AUTO) 9.4 % (2.0-12.0); NEUTROPHILS # (AUTO) 3.4 /CMM (1.8-8.9); NEUTROPHILS % (AUTO) 65.9 % (43.0-81.0); PLATELET COUNT (AUTO) 248 /CMM (150-450); RED BLOOD CELL COUNT(AUTO) 4.69 MIL/uL (4.5-6.0); WHITE BLOOD COUNT (AUTO) 5.2 K/uL (4.3-11.0)
--- NOTE | 2021-03-01 14:51 | NUR ---
ULTRASOUND COMPLETED AT BEDSIDE
[2021-03-01 14:52] LABS: CALCIUM, SERUM 8.3 mg/dL (8.5-10.1); CARBON DIOXIDE 27 mmol/L (21-32); CHLORIDE 104 mmol/L (98-107); CREATININE 0.9 mg/dL (0.6-1.3); GLUCOSE 137 mg/dL (74-106); POTASSIUM 3.2 mmol/L (3.5-5.1); SODIUM SERUM 139 mmol/L (136-145); UREA NITROGEN, BLOOD 9 mg/dL (7-18)
[2021-03-01 15:02] LABS: ALBUMIN 3.3 g/dL (3.4-5.0); ALKALINE PHOSPHATASE 63 U/L (46-116); BILIRUBIN,TOTAL 0.4 mg/dL (0.2-1.0); TOTAL PROTEIN, SERUM 6.8 g/dL (6.4-8.2)
--- NOTE | 2021-03-01 15:06 | NUR ---
URINE SENT TO LAB
[2021-03-01 15:11] LABS: BILIRUBIN,URINE Negative (NEGATIVE); COLOR,URINE YELLOW (YELLOW); LEUKOCYTE ESTERASE ,URINE Negative (NEGATIVE); NITRITE, URINE Negative (NEGATIVE); PH,URINE 5.5 (5.0-8.0); PROTEIN,URINE Negative (NEGATIVE); UGLUCOSE Negative (NEGATIVE); UROBILINOGEN,URINE 0.2 EU/dL (0.2)
[2021-03-01 15:19] LABS: BACTERIA,URINE Few /HPF (None Seen); RBC,URINE 0-2 /HPF (0-2); SQUAMOUS EPITHELIAL CELL,UR Few /HPF (None Seen); WBC,URINE 0-2 /HPF (0-3)
[2021-03-01] MEDS ORDERED: MECL-159 PO (16:01)
[2021-03-01] MEDS ORDERED: ONDA4TAB5 PO (16:01)
--- NOTE | 2021-03-01 16:12 | NUR ---
Patient discharged to home in stable condition. Written and verbal after care instructions given. Patient verbalizes understanding of instruction.IV removed. Catheter intact and site benign. Pressure and 4x4 applied to site. No bleeding noted. Pt ambulatory with a steady gait
[2021-03-01 16:13] VITALS: BP 150/92
[2021-03-01 16:38] LABS: ALANINE AMINOTRANSFERASE 17 U/L (12-78)
[2021-03-01 17:20] LABS: ASPARTATE AMINOTRANSFERASE 14 U/L (15-37)
== END 2021-03-01 16:13 | disposition home or self-care (01) ==
LOC: ER 13:51
DX: R42 Dizziness and giddiness (principal); I10 Essential (primary) hypertension; Z86.73 Personal history of transient ischemic attack (TIA), and cerebral infarction without residual deficits; Z79.899 Other long term (current) drug therapy; Z79.82 Long term (current) use of aspirin
CPT/HCPCS: 36415; 70450; 71045; 80048; 80076; 81001; 84484; 85025; 93005; 96374; 99285; J2405; J8597

== ENCOUNTER 2021-03-09 16:05 | Inpatient (IN) | payer MEDICARE, OTHER ==
[~2021-03-09] VITALS: Ht 167.6 cm; Wt 88.0 kg
[~2021-03-09 16:05] MED LIST changes: +ONDA4TAB5 PO
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
--- NOTE | 2021-03-09 16:39 | NUR ---
MOVE PACKET TURNED IN.
[2021-03-09 16:48] LABS: BASOPHILS # (AUTO) 0.1 /CMM (0.0-0.2); BASOPHILS % (AUTO) 0.8 % (0.0-2.0); EOSINOPHILS % (AUTO) 0.3 % (0.0-6.0); HEMATOCRIT 39 % (39-51); HEMOGLOBIN 12.8 g/dL (13.5-17.5); LYMPHOCYTES # (AUTO) 1.7 /CMM (0.8-4.8); LYMPHOCYTES % (AUTO) 15.5 % (20.0-44.0); MEAN CORPUSCULAR HGB CONC 33 g/dl (31.0-36.0); MEAN CORPUSCULAR VOLUME 76 fL (80-96); MONOCYTES # (AUTO) 0.9 /CMM (0.1-1.30); MONOCYTES % (AUTO) 7.9 % (2.0-12.0); NEUTROPHILS # (AUTO) 8.4 /CMM (1.8-8.9); NEUTROPHILS % (AUTO) 75.5 % (43.0-81.0); PLATELET COUNT (AUTO) 316 /CMM (150-450); RED BLOOD CELL COUNT(AUTO) 5.12 MIL/uL (4.5-6.0); WHITE BLOOD COUNT (AUTO) 11.1 K/uL (4.3-11.0)
[2021-03-09 16:59] LABS: BILIRUBIN,URINE Negative (NEGATIVE); COLOR,URINE ORANGE (YELLOW); LEUKOCYTE ESTERASE ,URINE Negative (NEGATIVE); NITRITE, URINE Negative (NEGATIVE); PROTEIN,URINE 100 mg/dl (NEGATIVE); UGLUCOSE 100 MG/DL mg/dL (NEGATIVE); UROBILINOGEN,URINE 0.2 EU/dL (0.2)
[2021-03-09] MEDS ORDERED: TAMS-12 PO (17:01)
[2021-03-09] MEDS ORDERED: ATOR40TA PO (17:01)
[2021-03-09] MEDS ORDERED: SERT50TA PO (17:01)
[2021-03-09] MEDS ORDERED: BISA10SU11 RC (17:01)
[2021-03-09] MEDS ORDERED: NA P133E RC (17:01)
[2021-03-09] MEDS ORDERED: NITR0.4T48 SL (17:01)
[2021-03-09] MEDS ORDERED: FAMO20TA8 PO (17:01)
[2021-03-09] MEDS ORDERED: ACET-868 PO (17:01)
[2021-03-09] MEDS ORDERED: MELA5TAB PO (17:01)
[2021-03-09] MEDS ORDERED: ONDA4TAB5 PO (17:01)
[2021-03-09] MEDS ORDERED: PIMA34CA PO (17:01)
[2021-03-09] MEDS ORDERED: CYAN250T3 PO (17:01)
[2021-03-09] MEDS ORDERED: POLY17PO4 PO (17:01)
[2021-03-09] MEDS ORDERED: CHOL100062 PO (17:01)
[2021-03-09] MEDS ORDERED: LOSA100T31 PO (17:01)
[2021-03-09] MEDS ORDERED: TYL2T PO (17:01)
[2021-03-09] MEDS ORDERED: DOCU-141 PO (17:01)
[2021-03-09] MEDS ORDERED: MAGN400O6 PO (17:01)
[2021-03-09] MEDS ORDERED: ALBU18HF2 IH (17:01)
[2021-03-09] MEDS ORDERED: CARB1TAB24 PO (17:01)
[2021-03-09 17:04] LABS: BACTERIA,URINE Rare /HPF (None Seen); RBC,URINE NONE SEEN /HPF (0-2); SQUAMOUS EPITHELIAL CELL,UR Few /HPF (None Seen); WBC,URINE NONE SEEN /HPF (0-3)
[2021-03-09 17:05] LABS: CARBON DIOXIDE 25 mmol/L (21-32); CHLORIDE 102 mmol/L (98-107); CREATININE 1.1 mg/dL (0.6-1.3); GLUCOSE 130 mg/dL (74-106); POTASSIUM 3.1 mmol/L (3.5-5.1); SODIUM SERUM 139 mmol/L (136-145); UREA NITROGEN, BLOOD 12 mg/dL (7-18)
[2021-03-09 17:24] LABS: ALANINE AMINOTRANSFERASE 12 U/L (12-78); ALBUMIN 4.3 g/dL (3.4-5.0); ALKALINE PHOSPHATASE 73 U/L (46-116); ASPARTATE AMINOTRANSFERASE 20 U/L (15-37); BILIRUBIN,DIRECT 0.1 mg/dL (0.0-0.2); BILIRUBIN,TOTAL 0.7 mg/dL (0.2-1.0)
[2021-03-09 17:25] LABS: ACETAMINOPHEN < 2 ug/ml (10-30); ALCOHOL, BLOOD < 3 mg/dL (0-0)
[2021-03-09 18:16] LABS: NT-PRO BNP 234 pg/mL (0-125)
--- NOTE | 2021-03-09 18:27 | NUR ---
CALLED [facility] FOR EVAL. WILL COME IN AFTER [facility] ETA UNKNOWN.
[2021-03-09] MEDS ORDERED: POTASSIUM CHLORIDE 10 MEQ TABLET.SA PO ONE (20:30)
[2021-03-09] MEDS ORDERED: POTASSIUM CHLORIDE 20 MEQ TAB.PRT.SR PO ONE ×2 (20:30→20:34)
[2021-03-09] MEDS ORDERED: POTASSIUM CHLORIDE 10 MEQ TABLET.SA ONE (20:34)
--- NOTE | 2021-03-09 20:38 | NUR ---
REPORT GIVEN TO ALEC SCHMIDT FOR LANIE
--- NOTE | 2021-03-09 20:45 | NUR ---
PT TRANSPORTED TO UNIT ON [facility] WITH EMT AT BEDSIDE ON STABLE CONDITION. NAD DURING TRANSPORT.
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
[2021-03-09 22:58] VITALS: BP 155/88
[2021-03-09] MEDS ORDERED: ALBUTEROL SULFATE INH 18 GM HFA.AER.AD IH PRN (23:00)
[2021-03-09] MEDS ORDERED: BLOOD SUGAR DIAGNOSTIC 1 EACH STRIP IN ONE (23:00)
[2021-03-09] MEDS ORDERED: MAGNESIUM HYDROXIDE 30 ML UDC PO PRN (23:00)
--- NOTE | 2021-03-10 06:16 | NUR ---
GPS RN NOTE ATTEMPTED TO CONTACT NEXT OF [facility] TO NOTIFY OF PATIENTS ADMISSION. LEFT VOICEMAIL FOR HER TO CONTACT [facility]. WILL ENDORSE TO AM SHIFT NURSE.
[2021-03-10 06:59] LABS: ALBUMIN 3.9 g/dL (3.4-5.0); CALCIUM, SERUM 8.7 mg/dL (8.5-10.1); CREATININE 0.8 mg/dL (0.6-1.3); POTASSIUM 3.3 mmol/L (3.5-5.1); TOTAL PROTEIN, SERUM 7.6 g/dL (6.4-8.2)
[2021-03-10 07:06] LABS: CHOLESTEROL 158 mg/dL (<200); HDL CHOLESTEROL 39 mg/dL (40-60); LDL 104 mg/dL (0-99); TRIGLYCERIDES 77 mg/dL (30-150)
[2021-03-10 08:00] VITALS: BP 154/97
--- NOTE | 2021-03-10 08:38 | NUR ---
Page to Doctor Toth for serum potassium 3.3. Yosi Romero RN
[2021-03-10] MEDS: ASPIRIN 81 MG TAB.CHEW PO SCH (09:27)
[2021-03-10] MEDS: CARBIDOPA/LEVODOPA 25/250 MG 1 UDTAB PO SCH ×5 (09:27→21:36)
[2021-03-10] MEDS: CHOLECALCIFEROL 1,000 UNIT TABLET (VIT D3) PO SCH (09:27)
[2021-03-10] MEDS: POLYETHYLENE GLYCOL 3350 17 GM POWD.PACK PO SCH (09:27)
[2021-03-10] MEDS: METOPROLOL TARTRATE 50 MG TABLET PO SCH ×2 (09:28→21:37)
[2021-03-10] MEDS: LOSARTAN POTASSIUM 50 MG TABLET PO SCH (09:28)
[2021-03-10] MEDS ORDERED: POTASSIUM CHLORIDE 20 MEQ TAB.PRT.SR PO SCH (09:30)
[2021-03-10] MEDS ORDERED: ALBUTEROL FS 2.5 MG/3 ML VIAL.NEB IH PRN (10:00)
[2021-03-10 16:00] VITALS: BP 140/81
[2021-03-10 20:37] VITALS: BP 159/71
[2021-03-10] MEDS: ATORVASTATIN 40 MG TABLET PO SCH (21:36)
[2021-03-10] MEDS: QUETIAPINE FUMARATE 100 MG TABLET PO SCH (21:36)
[2021-03-10] MEDS: TAMSULOSIN 0.4 MG CAP.SR.24H PO SCH (21:36)
[2021-03-10] MEDS: DIVALPROEX SODIUM 250 MG TABLET.DR PO SCH (21:37)
[2021-03-11 06:07] LABS: BASOPHILS % (AUTO) 0.8 % (0.0-2.0); EOSINOPHILS % (AUTO) 4.1 % (0.0-6.0); HEMATOCRIT 39 % (39-51); HEMOGLOBIN 12.9 g/dL (13.5-17.5); LYMPHOCYTES # (AUTO) 1.6 /CMM (0.8-4.8); LYMPHOCYTES % (AUTO) 27.1 % (20.0-44.0); MEAN CORPUSCULAR HGB CONC 33 g/dl (31.0-36.0); MEAN CORPUSCULAR VOLUME 77 fL (80-96); MONOCYTES # (AUTO) 0.6 /CMM (0.1-1.30); MONOCYTES % (AUTO) 9.9 % (2.0-12.0); NEUTROPHILS # (AUTO) 3.4 /CMM (1.8-8.9); NEUTROPHILS % (AUTO) 58.1 % (43.0-81.0); PLATELET COUNT (AUTO) 252 /CMM (150-450); WHITE BLOOD COUNT (AUTO) 5.9 K/uL (4.3-11.0)
[2021-03-11 06:35] LABS: CALCIUM, SERUM 8.9 mg/dL (8.5-10.1); CREATININE 1.3 mg/dL (0.6-1.3); MAGNESIUM 2.5 mg/dL (1.8-2.4); PHOSPHORUS 3.5 mg/dL (2.5-4.9); POTASSIUM 3.8 mmol/L (3.5-5.1)
--- NOTE | 2021-03-11 07:58 | NUR ---
Pt. told the verse writer that he is not allergy on eggs and he does not know who put it.
[2021-03-11 08:00] VITALS: BP 151/70
[2021-03-11] MEDS: DIVALPROEX SODIUM 250 MG TABLET.DR PO SCH ×3 (08:06→16:25)
[2021-03-11] MEDS: CHOLECALCIFEROL 1,000 UNIT TABLET (VIT D3) PO SCH (08:08)
[2021-03-11] MEDS: ASPIRIN 81 MG TAB.CHEW PO SCH (08:08)
[2021-03-11] MEDS: LOSARTAN POTASSIUM 50 MG TABLET PO SCH (08:08)
[2021-03-11] MEDS: METOPROLOL TARTRATE 50 MG TABLET PO SCH ×2 (08:08→21:02)
[2021-03-11] MEDS: POLYETHYLENE GLYCOL 3350 17 GM POWD.PACK PO SCH ×2 (08:08→08:39)
[2021-03-11] MEDS: CARBIDOPA/LEVODOPA 25/250 MG 1 UDTAB PO SCH ×5 (08:09→21:02)
[2021-03-11] MEDS: SERTRALINE HCL 50 MG TABLET PO SCH (08:09)
[2021-03-11] MEDS: MAG HYDROX/AL HYDROX/SIMETH 30 ML UDC PO PRN (11:11)
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
[2021-03-11] MEDS: ACETAMINOPHEN 325 MG TABLET PO PRN ×2 (12:19→19:48)
[2021-03-11 16:00] VITALS: BP 152/74
--- NOTE | 2021-03-11 19:15 | NUR ---
RN NOTE PATIENT IS WALKING AROUND THE HALLWAY WITH THE WALKER, BREATHING EVEN AND UNLABORED. PATIENT IS A/O X 2-3. COMPLAINS OF MILD PAIN THROUGHOUT HIS BODY WELL BEING ANXIOUS. SAFETY PRECAUTIONS IN PLACE. WILL MONITOR PATIENT CLOSELY.
[2021-03-11] MEDS: LORAZEPAM 0.5 MG TABLET PO PRN (19:47)
--- NOTE | 2021-03-11 19:50 | NUR ---
PATIENT GIVEN ATIVAN FOR ANXIOUSNESS AND TYLENOL FOR PAIN 3/10 GENERALIZED PAIN ON PAIN SCALE OF 0-10.
[2021-03-11 20:30] VITALS: BP 163/97
--- NOTE | 2021-03-11 20:55 | NUR ---
RE-CHECKED BP, WENT UP TO 189/100. WILL GIVE BP MED AND RECHECK AGAIN.
[2021-03-11] MEDS: QUETIAPINE FUMARATE 100 MG TABLET PO SCH (21:08)
[2021-03-11] MEDS: TAMSULOSIN 0.4 MG CAP.SR.24H PO SCH (21:08)
[2021-03-11] MEDS: ATORVASTATIN 40 MG TABLET PO SCH (21:08)
[2021-03-11 22:00] VITALS: BP 163/97
--- NOTE | 2021-03-11 22:00 | NUR ---
RECHECKED BP- NOW 111/60
[2021-03-11] MEDS: TEMAZEPAM 7.5 MG CAPSULE PO PRN (23:43)
--- NOTE | 2021-03-11 23:43 | NUR ---
PATIENT REQUESTED SOMETHING FOR SLEEP. TEMAZEPAM GIVEN TO HELP PATIENT SLEEP..
[2021-03-12] MEDS: ACETAMINOPHEN 325 MG TABLET PO PRN ×2 (03:08→16:59)
--- NOTE | 2021-03-12 03:08 | NUR ---
PATIENT COMPLAINING OF RIGHT LEG PAIN 3/10 ON PAIN SCALE OF 0-10. TYLENOL GIVEN
--- NOTE | 2021-03-12 06:56 | NUR ---
RN NOTES PATIENT CURRENTLY HAVE EYES CLOSED, AWAKENS EASILY. NOT IN ANY APPARENT DISTRESS. ALL NEEDS MET AND ATTENDED. WILL ENDORSE TO DAY SHIFT NURSE FOR LANIE
[2021-03-12 08:00] VITALS: BP 142/68
[2021-03-12] MEDS: CARBIDOPA/LEVODOPA 25/250 MG 1 UDTAB PO SCH ×5 (08:09→20:42)
[2021-03-12] MEDS: CHOLECALCIFEROL 1,000 UNIT TABLET (VIT D3) PO SCH (08:09)
[2021-03-12] MEDS: METOPROLOL TARTRATE 50 MG TABLET PO SCH ×2 (08:10→20:43)
[2021-03-12] MEDS: ASPIRIN 81 MG TAB.CHEW PO SCH (08:10)
[2021-03-12] MEDS: LOSARTAN POTASSIUM 50 MG TABLET PO SCH (08:10)
[2021-03-12] MEDS: DIVALPROEX SODIUM 250 MG TABLET.DR PO SCH ×3 (08:10→16:15)
[2021-03-12] MEDS: SERTRALINE HCL 50 MG TABLET PO SCH (08:10)
[2021-03-12] MEDS: POLYETHYLENE GLYCOL 3350 17 GM POWD.PACK PO SCH (08:12)
[2021-03-12] MEDS: MAG HYDROX/AL HYDROX/SIMETH 30 ML UDC PO PRN (09:00)
--- NOTE | 2021-03-12 09:00 | NUR ---
RN NOTE-PT ALERT ORIENTED PERSON PLACE TIME PURPOSE MED COMPLIANT CALM DIRECTABLE GARBLES SPEECH MAKES NEEDS KNOWN DENIES SI HI VH
--- NOTE | 2021-03-12 09:09 | NUR ---
RN NOTE- C/O DYSPEPSIA. MAALOX 30 CC GIVEN
--- NOTE | 2021-03-12 12:15 | NUR ---
RN NOTE- CLARIFICATION NEEDED FOR PTS SINEMET 25/250 ORDER. ORDER CALLS FOR SINEMET 25/250 QID PLUS AN EXTRA 1.5 TAB AT 1300. PT CLAIMS TO TAKE 2.5 TABS AT 1300. LOOKED THROUGH CHART, CALLED [facility]. CALLED DR GEORGE AND CLARIFIED. ORDER CALLS FOR SINEMET 25/250 FOUR TIMES DAILY WITH AN EXTRA DOSE OF 1.5 TABS AT 1300.
[2021-03-12 16:00] VITALS: BP 156/90
--- NOTE | 2021-03-12 17:00 | NUR ---
RN NOTE- C/O HEADACHE. TYLENOL 650 MG GIVEN
[2021-03-12 20:23] VITALS: BP 166/88
[2021-03-12 20:30] VITALS: BP 166/88
[2021-03-12] MEDS: TAMSULOSIN 0.4 MG CAP.SR.24H PO SCH (21:27)
[2021-03-12] MEDS: ATORVASTATIN 40 MG TABLET PO SCH (21:27)
[2021-03-12] MEDS: QUETIAPINE FUMARATE 100 MG TABLET PO SCH (21:27)
[2021-03-12 21:50] VITALS: BP 145/87
[2021-03-13] VITALS (7 sets, daily range): BP systolic 142–169; BP diastolic 82–92
[2021-03-13] MEDS: ACETAMINOPHEN 325 MG TABLET PO PRN ×3 (00:37→18:48)
--- NOTE | 2021-03-13 00:39 | NUR ---
RN NOTE: PAIN PATIENT C/O BILATERAL LEG PAIN 12/16 & REQUESTED TO TAKE PAIN MEDICINE. PRN TYLENOL 650 MG PO ADMINISTERED. WILL CONTINUE TO MONITOR.
[2021-03-13] MEDS: TEMAZEPAM 7.5 MG CAPSULE PO PRN ×2 (01:00→22:36)
--- NOTE | 2021-03-13 01:02 | NUR ---
RN NOTE: INSOMNIA PATIENT VERBALIZED THAT HE IS UNABLE TO SLEEP, PATIENT INSISTED TO TAKE SLEEPING MEDICINE AT THIS TIME. RESTORIL 7.5 MG 1 CAP PO ADMINISTERED. WILL CONTINUE TO MONITOR.
[2021-03-13] MEDS: LORAZEPAM 0.5 MG TABLET PO PRN (03:31)
--- NOTE | 2021-03-13 03:34 | NUR ---
RN NOTE: ANXIETY PATIENT VERBALIZED FEELING ANXIOUS & RESTLESS, PATIENT REQUESTED TO TAKE ATIVAN. PRN ATIVAN 0.5 MG 1 TAB PO ADMINISTERED. WILL CONTINUE TO MONITOR.
--- NOTE | 2021-03-13 06:48 | NUR ---
RN NOTE PATIENT IS CALM & RELAXED AT THIS TIME, AWAKE, AMBULATES WITH WALKER. WILL CONTINUE TO MONITOR.
[2021-03-13 07:10] LABS: ALBUMIN 3.5 g/dL (3.4-5.0); BILIRUBIN,TOTAL 0.3 mg/dL (0.2-1.0); CALCIUM, SERUM 8.7 mg/dL (8.5-10.1); MAGNESIUM 2.3 mg/dL (1.8-2.4); PHOSPHORUS 3.6 mg/dL (2.5-4.9); POTASSIUM 3.4 mmol/L (3.5-5.1); TOTAL PROTEIN, SERUM 7.1 g/dL (6.4-8.2)
[2021-03-13 07:24] LABS: BASOPHILS # (AUTO) 0.1 /CMM (0.0-0.2); EOSINOPHILS % (AUTO) 2.7 % (0.0-6.0); HEMATOCRIT 38 % (39-51); HEMOGLOBIN 12.4 g/dL (13.5-17.5); LYMPHOCYTES # (AUTO) 1.8 /CMM (0.8-4.8); LYMPHOCYTES % (AUTO) 29.5 % (20.0-44.0); MEAN CORPUSCULAR HGB CONC 33 g/dl (31.0-36.0); MEAN CORPUSCULAR VOLUME 77 fL (80-96); MONOCYTES # (AUTO) 0.5 /CMM (0.1-1.30); MONOCYTES % (AUTO) 8.5 % (2.0-12.0); NEUTROPHILS # (AUTO) 3.6 /CMM (1.8-8.9); NEUTROPHILS % (AUTO) 58.3 % (43.0-81.0); PLATELET COUNT (AUTO) 261 /CMM (150-450); RED BLOOD CELL COUNT(AUTO) 4.91 MIL/uL (4.5-6.0); WHITE BLOOD COUNT (AUTO) 6.1 K/uL (4.3-11.0)
[2021-03-13] MEDS: CHOLECALCIFEROL 1,000 UNIT TABLET (VIT D3) PO SCH (08:11)
[2021-03-13] MEDS: ASPIRIN 81 MG TAB.CHEW PO SCH (08:12)
[2021-03-13] MEDS: DIVALPROEX SODIUM 250 MG TABLET.DR PO SCH ×3 (08:12→16:06)
[2021-03-13] MEDS: LOSARTAN POTASSIUM 50 MG TABLET PO SCH (08:12)
[2021-03-13] MEDS: METOPROLOL TARTRATE 50 MG TABLET PO SCH ×2 (08:12→21:08)
[2021-03-13] MEDS: SERTRALINE HCL 50 MG TABLET PO SCH (08:12)
[2021-03-13] MEDS: CARBIDOPA/LEVODOPA 25/250 MG 1 UDTAB PO SCH ×5 (08:12→21:08)
[2021-03-13] MEDS: POLYETHYLENE GLYCOL 3350 17 GM POWD.PACK PO SCH (08:13)
[2021-03-13] MEDS ORDERED: POTASSIUM CHLORIDE 20 MEQ TAB.PRT.SR PO SCH (09:30)
[2021-03-13] MEDS: AMLODIPINE BESYLATE 5 MG TABLET PO SCH (13:43)
[2021-03-13] MEDS: QUETIAPINE FUMARATE 100 MG TABLET PO SCH (21:38)
[2021-03-13] MEDS: TAMSULOSIN 0.4 MG CAP.SR.24H PO SCH (21:38)
[2021-03-13] MEDS: ATORVASTATIN 40 MG TABLET PO SCH (21:38)
--- NOTE | 2021-03-13 22:37 | NUR ---
RN NOTE: INSOMNIA PATIENT VERBALIZED THAT HE IS UNABLE TO SLEEP, PATIENT REQUESTED TO TAKE SLEEPING MEDICINE AT THIS TIME. RESTORIL 7.5 MG 1 CAP PO ADMINISTERED. WILL CONTINUE TO MONITOR.
[2021-03-14] MEDS: ACETAMINOPHEN 325 MG TABLET PO PRN ×3 (00:56→18:16)
--- NOTE | 2021-03-14 00:59 | NUR ---
RN NOTE: PAIN PATIENT C/O BILATERAL LEG PAIN 12/16 & REQUESTED TO TAKE PAIN MEDICINE. PRN TYLENOL 650 MG PO ADMINISTERED. WILL CONTINUE TO MONITOR.
[2021-03-14] MEDS: LORAZEPAM 0.5 MG TABLET PO PRN (01:29)
--- NOTE | 2021-03-14 04:45 | NUR ---
RN NOTE PATIENT IS INTERMITTENTLY SLEEPING AT THIS TIME, IN & OUT OF HIS ROOM FREQUENTLY, SEEKING FOR MEDS FREQUENTLY, PRN'S WERE ADMINISTERED TO THE PATIENT ORDERED BUT PATIENT DOES NOT WANT TO WAIT & KEEPS ASKING TO REPEAT ATIVAN, RESTORIL & PAIN MEDS LESS THAN ORDERED TIME. PATIENT IS CALM & RELAXED AT THIS TIME. NO BEHAVIOR OR MEDICAL CONCERNS NOTED BUT PATIENT IS ASKING FOR MEDICINE EVERY 30 MINUTES. REDIRECTED THE PATIENT WITH EXPLANATIONS. PATIENT WANTS TO TALK TO THE DOCTOR IN THE MORNING TO GET MORE MEDICINE ORDERED. WILL ENDORSE TO AM RN TO INFORM AM MD ABOUT PATIENT'S CONCERNS.
[2021-03-14 07:22] LABS: CALCIUM, SERUM 8.7 mg/dL (8.5-10.1); POTASSIUM 3.9 mmol/L (3.5-5.1)
[2021-03-14 08:00] VITALS: BP 179/90
[2021-03-14 08:06] LABS: PTH, INTACT 30 pg/mL (15-65)
[2021-03-14] MEDS: CHOLECALCIFEROL 1,000 UNIT TABLET (VIT D3) PO SCH (08:12)
[2021-03-14] MEDS: METOPROLOL TARTRATE 50 MG TABLET PO SCH ×2 (08:12→21:07)
[2021-03-14] MEDS: ASPIRIN 81 MG TAB.CHEW PO SCH (08:12)
[2021-03-14] MEDS: AMLODIPINE BESYLATE 5 MG TABLET PO SCH (08:12)
[2021-03-14] MEDS: LOSARTAN POTASSIUM 50 MG TABLET PO SCH (08:13)
[2021-03-14] MEDS: CARBIDOPA/LEVODOPA 25/250 MG 1 UDTAB PO SCH ×5 (08:13→21:08)
[2021-03-14] MEDS: DIVALPROEX SODIUM 250 MG TABLET.DR PO SCH ×3 (08:13→16:13)
[2021-03-14] MEDS: SERTRALINE HCL 50 MG TABLET PO SCH (08:14)
[2021-03-14] MEDS: POLYETHYLENE GLYCOL 3350 17 GM POWD.PACK PO SCH (08:15)
[2021-03-14] MEDS: AMLODIPINE BESYLATE 10 MG TABLET PO SCH (09:00)
[2021-03-14 09:24] VITALS: BP 148/73
[2021-03-14 16:00] VITALS: BP 149/85
[2021-03-14 20:00] VITALS: BP 147/80
[2021-03-14] MEDS: ATORVASTATIN 40 MG TABLET PO SCH (21:08)
[2021-03-14] MEDS: TAMSULOSIN 0.4 MG CAP.SR.24H PO SCH (21:08)
[2021-03-14] MEDS: TEMAZEPAM 7.5 MG CAPSULE PO PRN (21:09)
[2021-03-14] MEDS: QUETIAPINE FUMARATE 100 MG TABLET PO SCH (21:09)
--- NOTE | 2021-03-14 21:11 | NUR ---
Pt c/o insomnia. Least restrictive measures ineffective. Restoril 7.5 mg po prn given as ordered. Will continue to monitor.
--- NOTE | 2021-03-14 22:13 | NUR ---
Post 1 hr, Restoril effective. Pt asleep in bed easy to arouse. Will continue to monitor. Frequent visual check done for safety.
[2021-03-15 08:00] VITALS: BP 141/84
[2021-03-15] MEDS: CHOLECALCIFEROL 1,000 UNIT TABLET (VIT D3) PO SCH (08:19)
[2021-03-15] MEDS: ASPIRIN 81 MG TAB.CHEW PO SCH (08:19)
[2021-03-15] MEDS: POLYETHYLENE GLYCOL 3350 17 GM POWD.PACK PO SCH (08:19)
[2021-03-15] MEDS: DIVALPROEX SODIUM 250 MG TABLET.DR PO SCH ×3 (08:19→16:10)
[2021-03-15] MEDS: METOPROLOL TARTRATE 50 MG TABLET PO SCH ×2 (08:20→21:09)
[2021-03-15] MEDS: AMLODIPINE BESYLATE 10 MG TABLET PO SCH (08:20)
[2021-03-15] MEDS: SERTRALINE HCL 50 MG TABLET PO SCH (08:21)
[2021-03-15] MEDS: LOSARTAN POTASSIUM 50 MG TABLET PO SCH (08:22)
[2021-03-15] MEDS: CARBIDOPA/LEVODOPA 25/250 MG 1 UDTAB PO SCH ×5 (08:26→21:10)
[2021-03-15 10:07] LABS: *SPE ALBUMIN 3.4 g/dL (2.9-4.4); *SPE ALPHA-1-GLOBULIN 0.2 g/dL (0.0-0.4); *SPE ALPHA-2-GLOBULIN 0.7 g/dL (0.4-1.0); *SPE BETA GLOBULIN 1.1 g/dL (0.7-1.3); *SPE GLOBULIN, TOTAL 3.3 g/dL (2.2-3.9); *SPE M-SPIKE Not Observed g/dL (Not Observed); *SPEGAMMA GLOBULIN 1.2 g/dL (0.4-1.8)
[2021-03-15] MEDS ORDERED: TEMAZEPAM 7.5 MG CAPSULE PO PRN (13:30)
[2021-03-15] MEDS ORDERED: MAG HYDROX/AL HYDROX/SIMETH 30 ML UDC PO PRN (13:30)
[2021-03-15] MEDS ORDERED: MAGNESIUM HYDROXIDE 30 ML UDC PO PRN (13:30)
[2021-03-15] MEDS ORDERED: ACETAMINOPHEN 325 MG TABLET PO PRN (13:30)
[2021-03-15] MEDS ORDERED: LORAZEPAM 0.5 MG TABLET PO PRN (13:30)
[2021-03-15 16:00] VITALS: BP 119/67
[2021-03-15] MEDS: ACETAMINOPHEN 325 MG TABLET PO PRN (16:22)
--- NOTE | 2021-03-15 16:24 | NUR ---
GPS RN NOTES PATIENT COMPLAINING OF HEADACHE AND REQUESTING PRN PAIN MEDICATION. PRN TYLENOL ADMINISTERED. WILL REASSESS.
[2021-03-15] MEDS: LORAZEPAM 0.5 MG TABLET PO PRN (19:38)
[2021-03-15 20:00] VITALS: BP 160/90
[2021-03-15] MEDS: TAMSULOSIN 0.4 MG CAP.SR.24H PO SCH (21:09)
[2021-03-15] MEDS: ATORVASTATIN 40 MG TABLET PO SCH (21:09)
[2021-03-15] MEDS: QUETIAPINE FUMARATE 100 MG TABLET PO SCH (21:10)
[2021-03-15 22:44] VITALS: BP 140/59
[2021-03-16] MEDS: ACETAMINOPHEN 325 MG TABLET PO PRN ×3 (02:34→19:39)
[2021-03-16] MEDS: CARBIDOPA/LEVODOPA 25/250 MG 1 UDTAB PO SCH ×5 (06:16→21:39)
[2021-03-16 08:00] VITALS: BP 118/71
[2021-03-16] MEDS: METOPROLOL TARTRATE 50 MG TABLET PO SCH ×2 (08:20→20:18)
[2021-03-16] MEDS: DIVALPROEX SODIUM 250 MG TABLET.DR PO SCH ×3 (08:20→16:04)
[2021-03-16] MEDS: CHOLECALCIFEROL 1,000 UNIT TABLET (VIT D3) PO SCH (08:20)
[2021-03-16] MEDS: SERTRALINE HCL 50 MG TABLET PO SCH (08:20)
[2021-03-16] MEDS: LOSARTAN POTASSIUM 50 MG TABLET PO SCH (08:20)
[2021-03-16] MEDS: ASPIRIN 81 MG TAB.CHEW PO SCH (08:20)
[2021-03-16] MEDS: AMLODIPINE BESYLATE 10 MG TABLET PO SCH (08:21)
[2021-03-16] MEDS: POLYETHYLENE GLYCOL 3350 17 GM POWD.PACK PO SCH (08:23)
--- NOTE | 2021-03-16 09:00 | NUR ---
RN NOTE- PT ALERT ORIENTED PERSON PLACE PURPOSE, BLUNTED AFFECT, MED COMPLIANT, PO INTAKE GOOD, WITHDRAWN THOUGH INTERACTS NEEDS ATTENDED, DENIES ALL
--- NOTE | 2021-03-16 12:42 | NUR ---
Facility Contact: SARAH contacted Rhoda ([phone]) from [facility] and confirmed that the pt can return to the facility.
--- NOTE | 2021-03-16 13:03 | NUR ---
Family Update regarding D/C Plan: SW called the pt.'s , Katlin [phone] and notified her that the pt. is steadily improving and pt. will be discharged back to [facility] [[address] [place] [address]; ([phone])] when ready for D/C. Pt.'s expressed understanding and stated she is agreeable to discharge plan.
[2021-03-16 16:00] VITALS: BP 148/82
[2021-03-16] MEDS: LORAZEPAM 0.5 MG TABLET PO PRN (16:04)
--- NOTE | 2021-03-16 16:04 | NUR ---
RN NOTE- PT W ANXIETY. ATIVAN 0.5 MG GIVEN
[2021-03-16] MEDS: MECLIZINE HCL 25 MG TABLET PO PRN (19:28)
--- NOTE | 2021-03-16 19:29 | NUR ---
GPS RN NOTES: PATIENT C/O DIZZINESS MECLIZINE HYDROCHLORIDE 25MG 1TAB GIVEN PO PRN ORDERED. WILL CONTINUE TO MONITOR.
--- NOTE | 2021-03-16 19:40 | NUR ---
GPS RN NOTES: PATIENT C/O HEADACHE, TYLENOL 325MG 2TABS GIVEN PO PRN ORDERED. WILL CONTINUE TO MONITOR.
[2021-03-16 19:46] VITALS: BP 187/95
[2021-03-16] MEDS: QUETIAPINE FUMARATE 100 MG TABLET PO SCH (21:38)
[2021-03-16] MEDS: ATORVASTATIN 40 MG TABLET PO SCH (21:38)
[2021-03-16] MEDS: TAMSULOSIN 0.4 MG CAP.SR.24H PO SCH (21:38)
[2021-03-17] MEDS: ACETAMINOPHEN 325 MG TABLET PO PRN ×3 (01:42→19:40)
[2021-03-17] MEDS: LORAZEPAM 0.5 MG TABLET PO PRN ×2 (05:07→16:36)
--- NOTE | 2021-03-17 05:11 | NUR ---
GPS RN NOTES: PATIENT C/O ANXIETY, ATIVAN 0.5MG/1TABS GIVEN PO PRN ORDERED AT 0507. WILL CONTINUE TO MONITOR.
[2021-03-17] MEDS: CARBIDOPA/LEVODOPA 25/250 MG 1 UDTAB PO SCH ×5 (06:06→21:04)
--- NOTE | 2021-03-17 06:35 | NUR ---
GPS RN CLOSING NOTES: PATIENT IS AWAKE, A/O X2 AMBULATING IN HALLWAY. PATIENT SLEPT 2HR THIS SHIFT. PATIENT WAS MED COMPLIANT THIS SHIFT. NO S/S OF DISTRESS. RESPIRATION EVEN AND UNLABORED WITH EQUAL RISE AND FALL OF THE CHEST, ON ROOM AIR. ALL PATIENT CARE NEEDS HAVE BEEN MET ANTICIPATED. WILL CONTINUE TO MONITOR FOR SAFETY, MOOD AND BEHAVIOR AND ENDORSE TO AM SHIFT.
[2021-03-17 08:00] VITALS: BP 136/86
[2021-03-17] MEDS: ASPIRIN 81 MG TAB.CHEW PO SCH (08:34)
[2021-03-17] MEDS: LOSARTAN POTASSIUM 50 MG TABLET PO SCH (08:35)
[2021-03-17] MEDS: CHOLECALCIFEROL 1,000 UNIT TABLET (VIT D3) PO SCH (08:35)
[2021-03-17] MEDS: METOPROLOL TARTRATE 50 MG TABLET PO SCH ×2 (08:36→21:05)
[2021-03-17] MEDS: SERTRALINE HCL 50 MG TABLET PO SCH (08:36)
[2021-03-17] MEDS: AMLODIPINE BESYLATE 10 MG TABLET PO SCH (08:37)
[2021-03-17] MEDS: POLYETHYLENE GLYCOL 3350 17 GM POWD.PACK PO SCH (08:37)
--- NOTE | 2021-03-17 09:00 | NUR ---
RN NOTE-UNCHANGED, MED SEEKING FOCUS ON RX MOST OF SHIFT. PT ALERT ORIENTED PERSON PLACE PURPOSE, BLUNTED AFFECT, MED COMPLIANT, PO INTAKE GOOD, WITHDRAWN THOUGH INTERACTS NEEDS ATTENDED, DENIES ALL
[2021-03-17] MEDS: DIVALPROEX SODIUM 250 MG TABLET.DR PO SCH ×3 (09:10→16:26)
[2021-03-17] MEDS: MECLIZINE HCL 25 MG TABLET PO PRN ×2 (09:52→19:40)
--- NOTE | 2021-03-17 09:54 | NUR ---
RN NOTE- PT C/O HEADACHE AND DIZZINESS. VS STABLE . NO ACUTE DISTRESS. MECLIZINE AND TYLENOL GIVEN
[2021-03-17 16:00] VITALS: BP 134/72
--- NOTE | 2021-03-17 16:47 | NUR ---
ALEC NOTE- C/O ANXIETY. ATIVAN 1 MG GIVEN Addendum: 03/17/21 at 1650 by ABEL GARCIA RN ATIVAN 0.5 MG GIVEN, NOT 1 MG
[2021-03-17 20:00] VITALS: BP 152/95
[2021-03-17] MEDS: TAMSULOSIN 0.4 MG CAP.SR.24H PO SCH (21:04)
[2021-03-17] MEDS: QUETIAPINE FUMARATE 100 MG TABLET PO SCH (21:04)
[2021-03-17] MEDS: ATORVASTATIN 40 MG TABLET PO SCH (21:04)
[2021-03-18] MEDS: TEMAZEPAM 7.5 MG CAPSULE PO PRN (01:29)
[2021-03-18] MEDS: ACETAMINOPHEN 325 MG TABLET PO PRN ×2 (04:32→15:12)
--- NOTE | 2021-03-18 04:32 | NUR ---
GPS RN NOTE, PATIENT HAS A COMPLAINT OF A HEADACHE AT 2 OUT 10 ON THE PAIN SCALE AND IS REQUESTING TYLENOL AT THIS TIME. PATIENT VITAL SIGNS ARE STABLE. GAVE TYLENOL 650MG PO Q6HR PRN ORDERED. WILL REASSESS PAIN AND I WILL CONTINUE TO MONITOR THIS PATIENT WITH THE HELP OF STAFF.
[2021-03-18] MEDS: CARBIDOPA/LEVODOPA 25/250 MG 1 UDTAB PO SCH ×5 (06:04→21:43)
[2021-03-18 08:00] VITALS: BP 125/61
[2021-03-18] MEDS: LOSARTAN POTASSIUM 50 MG TABLET PO SCH (08:46)
[2021-03-18] MEDS: CHOLECALCIFEROL 1,000 UNIT TABLET (VIT D3) PO SCH (08:46)
[2021-03-18] MEDS: ASPIRIN 81 MG TAB.CHEW PO SCH (08:46)
[2021-03-18] MEDS: AMLODIPINE BESYLATE 10 MG TABLET PO SCH (08:46)
[2021-03-18] MEDS: DIVALPROEX SODIUM 250 MG TABLET.DR PO SCH ×3 (08:46→16:26)
[2021-03-18] MEDS: METOPROLOL TARTRATE 50 MG TABLET PO SCH ×2 (08:47→21:07)
[2021-03-18] MEDS: SERTRALINE HCL 50 MG TABLET PO SCH (08:47)
[2021-03-18] MEDS: POLYETHYLENE GLYCOL 3350 17 GM POWD.PACK PO SCH (08:47)
--- NOTE | 2021-03-18 09:00 | NUR ---
RN NOTE- MED SEEKING FOCUS ON RX MOST OF SHIFT. PT ALERT ORIENTED PERSON PLACE PURPOSE, BLUNTED AFFECT, MED COMPLIANT, PO INTAKE GOOD, WITHDRAWN THOUGH INTERACTS NEEDS ATTENDED, DENIES ALL
[2021-03-18] MEDS: MECLIZINE HCL 25 MG TABLET PO PRN (10:48)
--- NOTE | 2021-03-18 10:49 | NUR ---
RN NOTE- C/O VERTIGO. MECLIZINE 25 MG GIVEN
--- NOTE | 2021-03-18 14:29 | NUR ---
Facility Contact: SARAH contacted Rhoda ([phone]) from [facility] and informed him that the pt will be returning to the facility tomorrow.
--- NOTE | 2021-03-18 14:30 | NUR ---
Individual Intervention: SARAH informed the pt that he will be returning to the facility the next day and pt presented with a distressed affect and repeatedly stated, "Not home? Why not home?" SARAH attempted to explain that the pts family do not feel comfortable with the pt home at this time and that the pts MD believes that he needs to stabilize further.
--- NOTE | 2021-03-18 14:35 | NUR ---
Family notification of D/C 03/19/21: SW called the pt.'s , Katlin [phone] to notify her that the pt. will be discharged back to [facility] on 03/19/2021. However, call went to voicemail and inbox is full. SARAH made another attempt and no answer.
--- NOTE | 2021-03-18 15:12 | NUR ---
RN NOTE- PT C/O HEADACHE . TYLENOL 650 MG GIVEN
[2021-03-18 16:00] VITALS: BP 157/96
[2021-03-18] MEDS: LORAZEPAM 0.5 MG TABLET PO PRN (19:35)
--- NOTE | 2021-03-18 19:36 | NUR ---
RN NOTE: ANXIETY PATIENT VERBALIZED FEELING ANXIOUS, RESTLESS & REQUESTED TO TAKE ATIVAN. PRN ATIVAN 0.5 MG 1 TAB PO ADMINISTERED. WILL CONTINUE TO MONITOR.
[2021-03-18 19:38] VITALS: BP 154/94
[2021-03-18 19:50] VITALS: BP 154/94
[2021-03-18] MEDS: TAMSULOSIN 0.4 MG CAP.SR.24H PO SCH (21:07)
[2021-03-18] MEDS: ATORVASTATIN 40 MG TABLET PO SCH (21:08)
--- NOTE | 2021-03-18 21:10 | NUR ---
RN NOTE PATIENT HAS LOPRESSOR 100 MG SCHEDULED AT 2100, FIRST, ONLY 50 MG = 1 TAB WAS TAKEN OUT FROM OMNICELL BY MISTAKE, THERE WAS TOTAL OF 7 LOPRESSOR IN THE OMNICELL. ANOTHER LOPRESSOR WAS TAKEN OUT & TOTAL 5 LOPRESSOR LEFT IN THE OMNICELL AFTER TAKING OUT SECOND LOPRESSOR OF 50 MG = 100 MG.
[2021-03-18] MEDS: QUETIAPINE FUMARATE 100 MG TABLET PO SCH (21:43)
--- NOTE | 2021-03-18 23:26 | NUR ---
RN NOTE PATIENT ASKED TO TAKE SLEEPING MEDICINE EARLIER, MEDICINE WAS TAKEN OUT FROM OMNICELL TO ADMINISTER BUT PATIENT CHANGED HIS MIND TO TAKE RESTORIL AT THAT TIME & STATED, " I WANT TO TAKE SLEEPING MEDICINE AROUND MIDNIGHT, NOT NOW." WILL CONTINUE TO MONITOR.
--- NOTE | 2021-03-19 02:08 | NUR ---
RN NOTE PATIENT REFUSED TO TAKE RESTORIL, HAS BEEN SLEEPING WELL, RESTORIL 7.5 MG RETURNED BACK TO [facility], WITNESSED BY CHARGE NURSE.
[2021-03-19] MEDS: ACETAMINOPHEN 325 MG TABLET PO PRN (03:00)
--- NOTE | 2021-03-19 03:02 | NUR ---
RN NOTE: PAIN PATIENT C/O LOWER BACK PAIN 12/16, REQUESTED TO TAKE TYLENOL. PRN TYLENOL 650 MG PO ADMINISTERED. WILL CONTINUE TO MONITOR.
[2021-03-19] MEDS: CARBIDOPA/LEVODOPA 25/250 MG 1 UDTAB PO SCH ×3 (06:30→12:38)
--- NOTE | 2021-03-19 06:56 | NUR ---
RN NOTE COVID ANTIGEN SPECIMEN COLLECTED & SENT TO LAB.
[2021-03-19 08:00] VITALS: BP 135/78
[2021-03-19] MEDS: DIVALPROEX SODIUM 250 MG TABLET.DR PO SCH ×2 (08:21→12:49)
[2021-03-19] MEDS: POLYETHYLENE GLYCOL 3350 17 GM POWD.PACK PO SCH (08:21)
[2021-03-19] MEDS: ASPIRIN 81 MG TAB.CHEW PO SCH (08:21)
[2021-03-19 08:22] VITALS: BP 135/78
[2021-03-19] MEDS: SERTRALINE HCL 50 MG TABLET PO SCH (08:22)
[2021-03-19] MEDS: LOSARTAN POTASSIUM 50 MG TABLET PO SCH (08:22)
[2021-03-19] MEDS: AMLODIPINE BESYLATE 10 MG TABLET PO SCH (08:22)
[2021-03-19] MEDS: CHOLECALCIFEROL 1,000 UNIT TABLET (VIT D3) PO SCH (08:22)
[2021-03-19] MEDS: METOPROLOL TARTRATE 50 MG TABLET PO SCH (08:23)
[2021-03-19] MEDS: MECLIZINE HCL 25 MG TABLET PO PRN (10:09)
--- NOTE | 2021-03-19 10:11 | NUR ---
GPS RN NOTES PATIENT COMPLAINING OF VERTIGO; REQUESTING PRN MEDICATION. PRN MEDICATION ADMINISTERED. WILL REASSESS.
--- NOTE | 2021-03-19 11:18 | NUR ---
Discharge Note: Pt will be discharged to [facility] ([facility]) located at [address] [place] [address]; ([phone]). Pt will be transported via [facility] (Trip #[id number]) at 1PM. Pts , Katlin Ramirez ([phone]), was informed of the discharge. Upon discharge, the pt appears to be in a depressed mood and presented with a distressed affect. Pt appears to be alert and oriented x4 (time, place, self and situation). Pt denies both suicidal and homicidal ideation as well as auditory and visual hallucinations. Pt appears to be ambulatory with the assistance of a walker. Pt will be under the care of his psychiatrist, Dr. Mayes, [place] at [address] [place] [address]; and his broadcast journalist, Dr. Santiago, located at [address] [place] [address]; . Choice of vendor and the multidisciplinary exit care form was done, printed, signed, and given to the patient.
--- NOTE | 2021-03-19 13:46 | NUR ---
GpS SUPERVISOR POLISHING NOTE Patient discharged to [facility] ([facility]) in medically stable condition. Upon discharge, the patient appears to be in a depressed mood and presented with a distressed affect. Patient appears to be alert and oriented x4 (time, place, self and situation). Pt denies both suicidal and homicidal ideation as well as auditory and visual hallucinations. Pt appears to be ambulatory with the assistance of a walker. Patient refused to take pictures. Paperwork signed by 2 RNs per patient request. all belongings accounted for and returned to the patient. Patient left the unit via gurney accompanied by 2 editor farm journal at 1330.
== END 2021-03-19 13:30 | DRG 885 ==
LOC: ER 16:05 → GPS 20:14
PROVIDERS: ADMIT Nurse Practitioner Acute Care; ATTEND Nurse Practitioner Acute Care
DX: F39 Unspecified mood [affective] disorder (principal); I11.0 Hypertensive heart disease with heart failure; N17.0 Acute kidney failure with tubular necrosis; F02.81 Dementia in other diseases classified elsewhere, unspecified severity, with behavioral disturbance; G20 Parkinson's disease; E87.6 Hypokalemia; E78.5 Hyperlipidemia, unspecified; Z86.73 Personal history of transient ischemic attack (TIA), and cerebral infarction without residual deficits; J44.9 Chronic obstructive pulmonary disease, unspecified; I50.9 Heart failure, unspecified; F41.9 Anxiety disorder, unspecified; F32.9 Major depressive disorder, single episode, unspecified; Z88.5 Allergy status to narcotic agent; Z88.7 Allergy status to serum and vaccine; Z91.012 Allergy to eggs; Z79.51 Long term (current) use of inhaled steroids; Z79.899 Other long term (current) drug therapy; Z79.82 Long term (current) use of aspirin; K21.9 Gastro-esophageal reflux disease without esophagitis; J45.909 Unspecified asthma, uncomplicated; N40.0 Benign prostatic hyperplasia without lower urinary tract symptoms; F29 Unspecified psychosis not due to a substance or known physiological condition; D72.829 Elevated white blood cell count, unspecified; F11.10 Opioid abuse, uncomplicated; R42 Dizziness and giddiness; Z73.6 Limitation of activities due to disability
CPT/HCPCS: 36415; 70450-TC; 71045-TC; 80048-TC; 80053-TC; 80061-TC; 80076-TC; 81001; 82550-TC; 82962-TC; 83735-TC; 83880; 83970; 84100-TC; 84155; 84165; 84484-TC; 85025-TC; 87081-TC; 97116-TC; 97530-TC; C9803; G0480; J8597